=== PATIENT | male | born 1975 | race Caucasian/White ===

== ENCOUNTER 2021-10-30 10:01 | Emergency (ER) | payer SELFPAY ==
[~2021-10-30] VITALS: Ht 175 cm; Wt 114.0 kg
--- NOTE | 2021-10-30 10:43 | ED General ---
General Chief Complaint: Dizziness/Syncope Stated Complaint: SEEING DOUBLE - WEAKNESS Nursing Triage Note: PT STATES HE WAS WORKING AND STARTED SEEING DOUBLE AND ALMOST PASSED OUT, STATES HE HAS HYPERTENSION, WAS TOLD AT THE DENTIST THAT SYSTOLIC WAS OVER 200 LAST WEDNESDAY, HAS NOT SEEN ANY DR YET FOR THAT. Source of Information: Patient Exam Limitations: No Limitations History of Present Illness Date Seen by Provider: Oct 30, 2021 Time Seen by Provider: 10:32 Initial Comments Patient is a 46-year-old male who presents to the emergency department today from work with a chief complaint of acute onset of dizziness and double vision. Patient states that he was coming down off of a 14 foot ladder, he went to pull off his glasses to wipe water droplets off of them and he had a sudden onset of the above-stated symptoms. He states he felt like he was going to pass out. He went to the ground intentionally so that he did not fall. He states by the time he drove over here and got settled into the ED his symptoms have completely resolved. He did not have any headache. He did not feel nauseous at the time. He was not short of breath or having palpitations. No pain anywhere. He has never had symptoms like this before. He has a negative past medical history. He does not normally go to doctors. He was at the dentist about a week to 10 days ago and had a tooth pulled. He finished antibiotics last Wednesday. He was told at that time that his blood pressure was "high". He occasionally smokes. No alcohol use. No jpsk-cap-wbctagv medications recently. He has had something to eat and drink today. 4 bottles of water this morning. Again, symptoms have completely resolved. He does have a history of a sister who from pancreatic cancer in her 40s. He is got history of brain tumors in multiple family members. All other review of systems reviewed and negative except as stated. Timing/Duration: 1 Hour Severity: Moderate Modifying Factors: improves with Immobilization, improves with Other (time) Associated Systoms: Nausea/Vomiting (mild nausea), Syncope (Near syncope), Other (dizziness and double vision) Allergies and Home Medications Allergies Coded Allergies: No Known Drug Allergies (Unverified , 10/30/21) Patient Home Medication List Home Medication List Reviewed: Yes No Active Prescriptions or Reported Meds Review of Systems Review of Systems Constitutional: see HPI EENTM: double vision Respiratory: no symptoms reported Cardiovascular: no symptoms reported Gastrointestinal: no symptoms reported Genitourinary: no symptoms reported Musculoskeletal: no symptoms reported Skin: no symptoms reported Psychiatric/Neurological: Other (dizziness; possibly some slurred speech) All Other Systems Reviewed Negative Unless Noted: Yes Past Jpejiwb-Ljgoky-Rnbeig Hx Patient Social History Tobacco Use?: Yes Tobacco type used: Cigarettes Smoking Status: Current Someday Smoker Use of E-Cig and/or Vaping dev: Yes E-Cig or Vaping type used: Nicotine Substance use?: Yes Substance type: Marijuana Alcohol Use?: No Past Medical History Surgery/Hospitalization HX: TOOTH REMOVED 10/2021 Physical Exam Vital Signs Vital Signs - First Documented 10/30/21 10:15 Temp 36.6 Pulse 71 Resp 22 B/P (MAP) 165/107 (126) Pulse Ox 99 O2 Delivery Room Air Capillary Refill : Less Than 3 Seconds Height, Weight, BMI Height: '" Weight: lbs. oz. kg; 37.00 BMI Method: General Appearance: No Apparent Distress, WD/WN Eyes: Bilateral Eye Normal Inspection, Bilateral Eye PERRL, Bilateral Eye EOMI, Bilateral Eye Other (Has left greater than right nystagmus that is fatigable) HEENT: PERRL/EOMI, TMs Normal, Normal ENT Inspection, Pharynx Normal (Tongue is midline) Neck: Full Range of Motion, Normal Inspection, Non Tender, Supple Respiratory: Lungs Clear, Normal Breath Sounds, No Accessory Muscle Use, No Respiratory Distress Cardiovascular: Regular Rate, Rhythm, Normal Peripheral Pulses Gastrointestinal: Non Tender, Soft Extremity: Normal Capillary Refill, Normal Inspection, Normal Range of Motion, Non Tender, No Pedal Edema Neurologic/Psychiatric: Alert, Oriented x3, No Motor/Sensory Deficits, Normal Mood/Affect, 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; No Abnormal Cerebellar Tests, No EOM Palsy (No extraocular muscle palsy is demonstrated); Other (Normal finger-nose, negative Romberg) Skin: Normal Color, Warm/Dry Progress/Results/Core Measures Suspected Sepsis SIRS Temperature: Pulse: 71 Respiratory Rate: 22 Laboratory Tests 10/30/21 10:33: White Blood Count 9.7 Blood Pressure 165 /107 Mean: 126 Laboratory Tests 10/30/21 10:33: Creatinine 1.04, Platelet Count 397, Total Bilirubin 0.6 Results/Orders Lab Results Laboratory Tests Test 10/30/21 10:33 Range/Units White Blood Count 9.7 4.3-11.0 10^3/uL Red Blood Count 5.18 4.30-5.52 10^6/uL Hemoglobin 15.6 13.3-17.7 g/dL Hematocrit 45 40-54 % Mean Corpuscular Volume 86 80-99 fL Mean Corpuscular Hemoglobin 30 25-34 pg Mean Corpuscular Hemoglobin Concent 35 32-36 g/dL Red Cell Distribution Width 12.2 10.0-14.5 % Platelet Count 397 130-400 10^3/uL Mean Platelet Volume 9.2 9.0-12.2 fL Immature Granulocyte % (Auto) 1 % Neutrophils (%) (Auto) 63 42-75 % Lymphocytes (%) (Auto) 28 12-44 % Monocytes (%) (Auto) 6 0-12 % Eosinophils (%) (Auto) 2 0-10 % Basophils (%) (Auto) 1 0-10 % Neutrophils # (Auto) 6.0 1.8-7.8 10^3/uL Lymphocytes # (Auto) 2.7 1.0-4.0 10^3/uL Monocytes # (Auto) 0.6 0.0-1.0 10^3/uL Eosinophils # (Auto) 0.2 0.0-0.3 10^3/uL Basophils # (Auto) 0.1 0.0-0.1 10^3/uL Immature Granulocyte # (Auto) 0.1 0.0-0.1 10^3/uL Sodium Level 138 135-145 MMOL/L Potassium Level 3.5 L 3.6-5.0 MMOL/L Chloride Level 101 98-107 MMOL/L Carbon Dioxide Level 21 21-32 MMOL/L Anion Gap 16 H 5-14 MMOL/L Blood Urea Nitrogen 15 7-18 MG/DL Creatinine 1.04 0.60-1.30 MG/DL Estimat Glomerular Filtration Rate 89 BUN/Creatinine Ratio 14 Glucose Level 282 H 70-105 MG/DL Calcium Level 10.0 8.5-10.1 MG/DL Corrected Calcium 8.5-10.1 MG/DL Total Bilirubin 0.6 0.1-1.0 MG/DL Aspartate Amino Transf (AST/SGOT) 31 5-34 U/L Alanine Aminotransferase (ALT/SGPT) 74 H 0-55 U/L Alkaline Phosphatase 65 40-136 U/L Total Protein 8.4 H 6.4-8.2 GM/DL Albumin 4.7 H 3.2-4.5 GM/DL My Orders Orders - JOLANTA BUSH MD Ed Iv/Invasive Line Start (10/30/21 10:43) Cbc With Automated Diff (10/30/21 10:43) Comprehensive Metabolic Panel (10/30/21 10:43) Ct Head Wo (10/30/21 10:43) Ekg Tracing (10/30/21 10:44) Vital Signs/I&O 10/30/21 10:15 Temp 36.6 Pulse 71 Resp 22 B/P (MAP) 165/107 (126) Pulse Ox 99 O2 Delivery Room Air Capillary Refill : Less Than 3 Seconds Blood Pressure Mean: 126 Progress Note : Time: 11:32 Progress Note Patient continues to feel asymptomatic. Blood pressure is elevated in the upper 140s over upper 90s. CT was unremarkable. CBC was normal, chemistry however shows a blood sugar of 282. He had no idea that he might be diabetic. We had a long discussion about the risks of untreated hypertension and diabetes, I encou raged him to find a doctor within the next couple of days to get a "work-up" for further management of his blood pressure and elevated blood sugar. He is receptive to this. I will give him a work note for the next couple of days while he gets this sorted out. He has no other questions. No concerns. Patient is stable for discharge. I did encourage him to watch his sugar intake over the next couple of days ECG Initial ECG Impression Date: Oct 30, 2021 Initial ECG Impression Time: 10:21 Initial ECG Rate: 66 Initial ECG Rhythm: Normal Sinus Initial ECG Intervals: Normal Initial ECG Impression: Nonspecific Changes Comment No ectopy is observed, normal ST segments. Normal intervals Diagnostic Imaging Diagonstic Imaging: CT Comments [facility], [place] NAME: [facility] REC#: [id number] PT STATUS: REG ER : 1975 PHYSICIAN: JOLANTA BUSH MD ADMIT DATE: 10/30/21/ER Draft Date of Exam:10/30/21 CT HEAD WO PROCEDURE: CT head without contrast. TECHNIQUE: Multiple contiguous axial images were obtained through the brain without the use of intravenous contrast. Auto Exposure Controls were utilized during the CT exam to meet ALARA standards for radiation dose reduction. INDICATION: Acute onset diplopia after syncopal episode, mild slurred speech. No priors FINDINGS: There is no hemorrhage, hydrocephalus, cerebral edema, mass, mass effect nor evidence for elevated intracranial pressures. The basilar cisterns are patent. There is no sulcal effacement. The midline structures nondisplaced. No focal or generalized edema. There is no loss of the cortical hoover-white matter differentiations. There is a left maxillary mucus retention cyst. The orbits, paranasal sinuses and calvarium all appeared nonacute. IMPRESSION: No hemorrhage, edema or acute appearing abnormalities. Dictated on workstation # [id number] Dict: 10/30/21 1108 Trans: 10/30/21 1112 [id number] Interpreted by: ADRIEL NGUYEN Electronically signed by: Departure Impression Primary Impression: Dizziness Additional Impressions: Hyperglycemia High blood pressure Qualified Codes: I10 - Essential (primary) hypertension Disposition: 01 HOME, SELF-CARE Condition: Improved Departure-Patient Inst. Decision time for Depature: 11:34 Referrals: [facility] [place],LOCAL PHYSICIAN (PCP) Primary Care Physician Patient Instructions: High Blood Pressure ED, High Blood Sugar, Adult ED Add. Discharge Instructions: Drink plenty of water/electrolyte replacement that is low in sugar to stay well- hydrated. Avoid simple sugars such as candy bars, soda (you can have diet soda) and sweet baked goods. Please call and follow-up with your primary care doctor in the next couple of days. If you develop a headache or return of double vision/dizziness especially with any other new, concerning or emergent symptoms please come back to the emergency room for reevaluation. Your blood sugar was [address] of the brain and the rest of your labs were normal. Scripts No Active Prescriptions or Reported Meds Work/School Note: Work Release Form Date Seen in the Emergency Department: Oct 30, 2021 Return to Work: Nov 03, 2021 Copy Copies To 1: VENKAT SANTANA KATHRYN M MD Oct 30, 2021 10:43
[2021-10-30 10:51] LABS: BASOPHILS # (AUTO) 0.1 10^3/uL (0.0-0.1); BASOPHILS % (AUTO) 1 % (0-10); EOSINOPHILS # (AUTO) 0.2 10^3/uL (0.0-0.3); EOSINOPHILS % (AUTO) 2 % (0-10); HEMATOCRIT 45 % (40-54); HEMOGLOBIN 15.6 g/dL (13.3-17.7); LYMPHOCYTES # (AUTO) 2.7 10^3/uL (1.0-4.0); LYMPHOCYTES % (AUTO) 28 % (12-44); MEAN CORPUSCULAR HEMOGLOBIN 30 pg (25-34); MEAN CORPUSCULAR HGB CONC 35 g/dL (32-36); MEAN CORPUSCULAR VOLUME 86 fL (80-99); MEAN PLATELET VOLUME 9.2 fL (9.0-12.2); MONOCYTES # (AUTO) 0.6 10^3/uL (0.0-1.0); MONOCYTES % (AUTO) 6 % (0-12); NEUTROPHILS % (AUTO) 63 % (42-75); PLATELET COUNT 397 10^3/uL (130-400); WHITE BLOOD COUNT 9.7 10^3/uL (4.3-11.0)
[2021-10-30 10:54] LABS: ALBUMIN 4.7 GM/DL (3.2-4.5); CHLORIDE 101 MMOL/L (98-107); POTASSIUM 3.5 MMOL/L (3.6-5.0); SODIUM 138 MMOL/L (135-145)
[2021-10-30 10:56] LABS: GLUCOSE 282 MG/DL (70-105); TOTAL PROTEIN 8.4 GM/DL (6.4-8.2)
[2021-10-30 10:57] LABS: CARBON DIOXIDE 21 MMOL/L (21-32)
[2021-10-30 10:58] LABS: BILIRUBIN,TOTAL 0.6 MG/DL (0.1-1.0)
[2021-10-30 10:59] LABS: ALKALINE PHOSPHATASE 65 U/L (40-136)
[2021-10-30 11:00] LABS: CREATININE SERUM 1.04 MG/DL (0.60-1.30); GFR ESTIMATED 89
[2021-10-30 11:01] LABS: BUN/CREATININE RATIO 14
[2021-10-30 11:03] LABS: ALANINE AMINOTRANSFERASE 74 U/L (0-55)
--- NOTE | 2021-10-30 11:12 | Diagnostic Imaging Report ---
PROCEDURE: CT head without contrast. TECHNIQUE: Multiple contiguous axial images were obtained through the brain without the use of intravenous contrast. Auto Exposure Controls were utilized during the CT exam to meet ALARA standards for radiation dose reduction. INDICATION: Acute onset diplopia after syncopal episode, mild slurred speech. No priors FINDINGS: There is no hemorrhage, hydrocephalus, cerebral edema, mass, mass effect nor evidence for elevated intracranial pressures. The basilar cisterns are patent. There is no sulcal effacement. The midline structures nondisplaced. No focal or generalized edema. There is no loss of the cortical hoover-white matter differentiations. There is a left maxillary mucus retention cyst. The orbits, paranasal sinuses and calvarium all appeared nonacute. IMPRESSION: No hemorrhage, edema or acute appearing abnormalities. Dictated by: Dictated on workstation # [id number]
[2021-10-30 11:40] VITALS: BP 160/99
== END 2021-10-30 11:40 | disposition home or self-care (01) ==
LOC: ER 10:07
DX: E11.65 Type 2 diabetes mellitus with hyperglycemia (principal); I10 Essential (primary) hypertension; R42 Dizziness and giddiness; F17.210 Nicotine dependence, cigarettes, uncomplicated; Z28.310 Unvaccinated for COVID-19
CPT/HCPCS: 36415; 70450; 80053; 85025; 93005